=== PATIENT | male | born 1975 | race Caucasian/White ===

== ENCOUNTER 2021-04-11 17:12 | Emergency (ER) | payer SELFPAY ==
[2021-04-11 17:23] VITALS: BMI 30.5
[2021-04-11] MEDS ORDERED: CASIRIVIMAB (REGN10933) 600 MG, IMDEVIMAB (REGN10987) 600 MG in SODIUM CHLORIDE 100 ML IVPB ONE (19:00)
[2021-04-11] MEDS ORDERED: ACETAMINOPHEN 325 MG TABLET (FP) ONE (20:17)
[2021-04-11] MEDS ORDERED: ACETAMINOPHEN 500 MG TABLET (FP) PO ONE (20:18)
[2021-04-11 20:59] VITALS: BP 112/67; PULSE 86; TEMP 99.6
== END 2021-04-11 21:55 | disposition home or self-care (01) ==
LOC: JER 17:12
DX: U07.1 COVID-19 (principal)
CPT/HCPCS: 99284-25; M0243; Q0243

== ENCOUNTER 2023-02-22 09:47 | Emergency (ER) | payer BC ==
[2023-02-22 09:58] VITALS: BMI 30.9
[2023-02-22 10:50] LABS: BASO % 1.1 % (0-2.0); EOS % 1.4 % (0-4.5); HEMATOCRIT 52.2 % (35.4-49); HEMOGLOBIN 18.2 GM/dL (11.7-16.9); LYMPH % 39.7 % (8-40); MCH 30.3 pg (25.7-33.7); MCHC 34.9 g/dl (32.0-35.9); MEAN CELL VOLUME 86.6 fl (80-96); MEAN PLT VOLUME 8.1 fl (7.5-11.1); MONO % 7.3 % (3.8-10.2); NEUT % 50.5 % (42.8-82.8); PLATELET COUNT 204 10^3/uL (134-434); RBC 6.02 M/mm3 (4.00-5.60); RDW 12.8 % (11.9-15.9); WHITE BLOOD COUNT 4.7 K/mm3 (4.0-10.0)
[2023-02-22 10:59] LABS: INR 1.07 (0.83-1.09); PROTHROMBIN TIME (PATIENT) 12.4 SEC (9.7-13.0)
[2023-02-22 11:01] LABS: ACTIVATED PTT 34.9 SECONDS (25.2-36.5)
[2023-02-22 11:25] LABS: ALBUMIN 4.4 g/dl (3.4-5.0); BLOOD UREA NITROGEN 16.2 mg/dL (7-18); CALCIUM 9.4 mg/dL (8.5-10.1); MAGNESIUM 2.1 mg/dL (1.8-2.4)
[2023-02-22 11:28] LABS: PHOSPHOROUS 3.2 mg/dL (2.5-4.9)
[2023-02-22 11:31] LABS: BILIRUBIN,TOTAL 1.2 mg/dL (0.2-1); TOT PROT 7.9 g/dl (6.4-8.2)
[2023-02-22 13:29] VITALS: BP 115/74; PULSE 59; RESP 16; TEMP 98.3
[2023-02-22 13:37] LABS: PH,URINE 6.5 (5.0-8.0); URINE APPEARANCE CLEAR; URINE BILIRUBIN NEGATIVE (NEGATIVE); URINE COLOR YELLOW; URINE GLUCOSE (UA) NEGATIVE (NEGATIVE); URINE KETONE NEGATIVE (NEGATIVE); URINE LEUK ESTERASE NEGATIVE (NEGATIVE); URINE NITRITE NEGATIVE (NEGATIVE); URINE PROTEIN NEGATIVE (NEGATIVE); URINE UROBILINOGEN 0.2 mg/dL (0.2-1.0)
== END 2023-02-22 14:22 | disposition home or self-care (01) ==
LOC: JER 09:47
DX: R07.89 Other chest pain (principal); R10.9 Unspecified abdominal pain; R30.0 Dysuria; R19.7 Diarrhea, unspecified; Z20.822 Contact with and (suspected) exposure to COVID-19
CPT/HCPCS: 0241U-QW; 36415; 71046-TC-FY; 71275-TC; 74174-TC; 80053; 81003; 83690; 83735; 84100; 84484; 85025; 85610; 85730; 86850; 86900; 86901; 93005; 93010; 99285-25; Q9967